=== PATIENT | male | born 1965 | race Caucasian/White ===

== ENCOUNTER 2017-02-28 09:40 | Outpatient (CLI) | payer BC, OTHER ==
[2017-02-28 12:45] LABS: BASOPHILS % (AUTO) 0.7 %; EOSINOPHILS # (AUTO) 0.2 10^3/uL (0.0-0.7); EOSINOPHILS % (AUTO) 3.2 %; HCT - HEMATOCRIT 44.1 % (42.0-52.0); HGB - HEMOGLOBIN 15.1 g/dL (14.0-18.0); MEAN CORPUSCULAR HEMOGLOBIN 30.4 pg (27.0-31.0); MEAN CORPUSCULAR HGB CONC 34.2 g/dL (32.0-36.0); MEAN CORPUSCULAR VOLUME 88.9 fL (80.0-94.0); MEAN PLATELET VOLUME 8.3 fL (7.4-11.4); MONOCYTES # (AUTO) 0.5 10^3/uL (0.0-1.0); MONOCYTES % (AUTO) 8.6 %; NEUTROPHILS # (AUTO) 3.4 10^3/uL (1.5-6.6); NEUTROPHILS % (AUTO) 54.5 %; NUCLEATED RED BLOOD CELLS AUTO 0.1 /100WBC; RED BLOOD COUNT 4.96 10^6/uL (4.70-6.10); RED CELL DISTRIBUTION WIDTH 13.5 % (12.0-15.0); UNCORRECTED WHITE BLOOD COUNT 6.2 x10^3/uL; WHITE BLOOD COUNT 6.2 x10^3/uL (4.8-10.8)
[2017-02-28 13:03] LABS: ALBUMIN/GLOBULIN RATIO 1.8 (1.0-2.2); BILIRUBIN,TOTAL 0.7 mg/dL (0.2-1.0); BUN - BLOOD UREA NITROGEN 14 mg/dL (6-20); CARBON DIOXIDE - CO2 28 mmol/L (21-32); CHLORIDE 101 mmol/L (101-111); CHOL/HDL RATIO 3.1 (<5.0); CHOLESTEROL 170 mg/dL; CREATININE 1.2 mg/dL (0.6-1.2); GFR - MDRD 64 (>89); GLUCOSE 98 mg/dL (70-100); HDL CHOLESTEROL 54 mg/dL; LDL/HDL RATIO 1.8 (<3.6); POTASSIUM 3.5 mmol/L (3.5-5.0); SODIUM 137 mmol/L (135-145); TRIGLYCERIDES 91 mg/dL; URIC ACID 8.1 mg/dL (2.6-7.2); VLDL CHOLESTEROL 18 mg/dL
== END 2017-02-28 09:41 | disposition home or self-care (01) ==
LOC: LAB.WCP 09:40
PROVIDERS: ATTEND Family Medicine
DX: Z00.00 Encounter for general adult medical examination without abnormal findings (principal); M10.00 Idiopathic gout, unspecified site
CPT/HCPCS: 36415; 80053; 80061; 84550; 85025

== ENCOUNTER 2018-03-07 07:30 | Day surgery (SDC) | payer BC, OTHER ==
[2018-03-07] MEDS ORDERED: LIDO GARGLE 30 ML BOTTLE ONE (08:04)
[2018-03-07] MEDS ORDERED: LACTATED RINGERS 1,000 ML IV ONE (08:14)
[2018-03-07] MEDS ORDERED: MIDAZOLAM 2 MG/2 ML VIAL IVP ONE (08:54)
[2018-03-07] MEDS ORDERED: fentaNYL 250 MCG/5 ML VIAL IVP ONE (08:54)
[2018-03-07 10:00] VITALS: BP 135/78
== END 2018-03-07 07:31 | disposition home or self-care (01) ==
LOC: SDS 07:30
PROVIDERS: ATTEND Internal Medicine Gastroenterology
PROC: 0DBC8ZZ Excision of Ileocecal Valve, Via Natural or Artificial Opening Endoscopic (ICD-10-PCS; principal; 2018-03-07 08:45)
DX: Z12.11 Encounter for screening for malignant neoplasm of colon (principal); D12.0 Benign neoplasm of cecum
CPT/HCPCS: 45380; A9270; J3010; J7120

== ENCOUNTER 2018-12-03 08:00 | Outpatient (CLI) | payer BC, OTHER ==
[2018-12-03 12:30] LABS: BASOPHILS # (AUTO) 0.1 10^3/uL (0.0-0.1); BASOPHILS % (AUTO) 0.9 %; EOSINOPHILS # (AUTO) 0.2 10^3/uL (0.0-0.7); EOSINOPHILS % (AUTO) 3.7 %; HGB - HEMOGLOBIN 15.7 g/dL (14.0-18.0); LYMPHOCYTES % (AUTO) 36.6 %; MEAN CORPUSCULAR HGB CONC 33.6 g/dL (32.0-36.0); MEAN CORPUSCULAR VOLUME 89.3 fL (80.0-94.0); MONOCYTES # (AUTO) 0.5 10^3/uL (0.0-1.0); MONOCYTES % (AUTO) 8.8 %; NEUTROPHILS # (AUTO) 2.7 10^3/uL (1.5-6.6); NEUTROPHILS % (AUTO) 49.8 %; PLT - PLATELET COUNT 212 10^3/uL (130-450); RED BLOOD COUNT 5.23 10^6/uL (4.70-6.10); RED CELL DISTRIBUTION WIDTH 13.1 % (12.0-15.0); WHITE BLOOD COUNT 5.5 x10^3/uL (4.8-10.8)
[2018-12-03 12:56] LABS: ALBUMIN 4.3 g/dL (3.2-5.5); ALBUMIN/GLOBULIN RATIO 1.5 (1.0-2.2); ALKALINE PHOSPHATASE 46 IU/L (42-121); ALT ALANINE AMINOTRANSFERASE 48 IU/L (10-60); AST ASPARTATE AMINOTRANSFERASE 33 IU/L (10-42); BILIRUBIN,TOTAL 0.9 mg/dL (0.2-1.0); BUN - BLOOD UREA NITROGEN 20 mg/dL (6-20); CALCIUM 9.2 mg/dL (8.5-10.3); CARBON DIOXIDE - CO2 23 mmol/L (21-32); CHLORIDE 104 mmol/L (101-111); CHOL/HDL RATIO 3.2 (<5.0); CHOLESTEROL 184 mg/dL; CREATININE 1.1 mg/dL (0.6-1.2); GFR - MDRD 71 (>89); GLUCOSE 112 mg/dL (70-100); HDL CHOLESTEROL 57 mg/dL; LDL CHOLESTEROL,CALCULATED 112 mg/dL; SODIUM 136 mmol/L (135-145); TOTAL PROTEIN 7.2 g/dL (6.7-8.2); URIC ACID 8.8 mg/dL (2.6-7.2); VLDL CHOLESTEROL 15 mg/dL
== END 2018-12-03 23:59 | disposition home or self-care (01) ==
LOC: LAB.WCP 08:00
PROVIDERS: ATTEND Family Medicine
DX: Z00.00 Encounter for general adult medical examination without abnormal findings (principal); M10.00 Idiopathic gout, unspecified site; Z12.5 Encounter for screening for malignant neoplasm of prostate
CPT/HCPCS: 36415; 80053; 80061; 83721; 84153; 84550; 85025

== ENCOUNTER 2020-02-17 12:52 | Outpatient (CLI) | payer BC, OTHER ==
--- NOTE | 2020-02-17 15:13 | SLEEP CARE CONSULTATION ---
Information from patient questionnaire entered by Katelin Kraft. I have reviewed and concur with the information entered by Katelin Kraft. This document represents the service I personally performed and the decisions made by me, Tisha Toure MD, [facility]. History of Present Illness Service Date and Time: 02/17/2020 1252 Reason for Visit: New patient Chief Complaint: reports: Other (was told by anesthesiologist) Usual bedtime: 1000 Time it takes to fall asleep: 16 minutes Observed to quit breathing while asleep: Yes Sleeps alone due to snoring: No Number of times waking at night: 1-2 Reasons for waking at night: reports: Bathroom Toss, Turn, or Twitch while sleeping: Yes Recalls having dreams: Yes Usually gets out of bed at: [id number] Feels refreshed in the morning: Yes Morning headache: No Sleepy or fatigued during the day: No Ever fallen asleep while driving: No Takes day naps: Yes Dreams during day naps: No Prior sleep studies: No Additional HPI information: I had the pleasure of seeing Mr. Burns today regarding the possibility of him having a sleep disorder. As you know, he is a 54 year old gentleman who reports being observed to stop breathing by hospital staff at the time of his leg surgery. At home, his says he snores loudly and quits breathing when he drinks alcohol. He does not wake up choking. He wakes up feeling refreshed in the morning. He normally works night but he can sleep at night on the weekends. Subjective Initial [place] Sleepiness Scale score: 12 Past Medical History Past Medical History: reports: Hypertension, Gout, Depression Social History The patient's occupation is an [employer]. Patient is and lives in [place]. Have you smoked in the past 12 months: No Years of smokin Quit date: 1992 Alcohol use: Yes Alcohol amount and frequency: 2-4 drinks, 2-3 Caffeine use: Yes Caffeine amount and frequency: 3-4 cups/day Family History Family history of sleep disordered breathing: Yes Family Hx Sleep Apnea: Father: Snoring, Sibling: Snoring Allergies and Home Medications Drug allergies reviewed: Yes (NKDA) Home medication list reviewed: Yes (none) Review of Systems Weight gain over past 5 years: 12 Weight loss over past 5 years: 12 Cardiovascular: reports: high blood pressure Respiratory: denies: shortness of breath, wheeze, sputum production, chronic cough, other Gastrointestinal: denies: heartburn, difficulty swallowing, nausea, vomitting, diarrhea, abdominal pain, other Urinary: denies: incontinence, frequency, urgency, impotence, other Neurological: denies: headaches, seizure, head trauma, disorientation, speech dysfunction, gait or balance problems, fainting or unconsciousness, other Psychiatric: reports: Attention Deficit Hyperactivity, anxiety, depression Ear/Nose/Throat: denies: nasal congestion, sinus problems, nose bleeds, dry mouth/throat, hoarseness, injury to nose, tonsillectomy, wisdom teeth removed, other Endocrine: denies: thyroid disease, history of goiter, sluggishness, too hot or cold, excessive thirst, increased appetite, increased urination, unexplained weakness, other Musculoskeletal: reports: joint pain, back pain, joint swelling, mobility problems Immunologic: reports: sneezing Physical Exam Vital signs obtained and entered by: Detailed physical exam was deferred to minimize COVID-19 exposure. Height: 5 ft 8 in Weight: 201 lb Body Mass Index: 30.5 BMI Classification: Obese Impression and Plan IMPRESSION: 1. Obstructive Sleep Apnea-Hypopnea Syndrome, as suggested by history of loud and irregular snoring and observed cessation of breath while asleep. Narrow oropharynx and obesity are common predisposing factors for obstructive sleep apnea-hypopnea syndrome. Untreated obstructive sleep apnea can also cause hypertension. Pathophysiology of sleep-disordered breathing was discussed. I recommend proceeding to polysomnography to confirm the diagnosis and to assess severity. If he has significant sleep disordered breathing, a manual CPAP titration study will also be performed to find the optimal treatment pressure. I informed the patient of what the sleep studies involve and after some discussion, he agreed to proceed. Plan: 1. Schedule polysomnography + manual CPAP titration study 2. Avoid long distance driving or when feeling sleepy. 3. Avoid alcohol, sedative and muscle relaxant around bedtime. 4. Attempt to lose weight. 5. Return in 1 to 2 weeks after the study to discuss results and initiate therap y. Visit Type: In Office Time Spent with Patient (minutes): 15 Provider Statement: I spent 100% of the Face to Face Visit with the patient with greater than 50% spent counseling the patient and coordination of care.
== END 2020-02-17 12:53 | disposition home or self-care (01) ==
LOC: SC 12:52
PROVIDERS: ATTEND Internal Medicine Pulmonary Disease
DX: R06.81 Apnea, not elsewhere classified (principal); R06.83 Snoring; G47.10 Hypersomnia, unspecified; E66.3 Overweight; I10 Essential (primary) hypertension
CPT/HCPCS: 99203; 99212

== ENCOUNTER 2020-03-10 19:30 | Outpatient (CLI) | payer BC, OTHER | END 2020-03-10 23:59 | disposition home or self-care (01) | LOC: SC 19:30 | PROVIDERS: ATTEND Internal Medicine Pulmonary Disease | DX: G47.33 Obstructive sleep apnea (adult) (pediatric) (principal); R09.02 Hypoxemia; E66.3 Overweight; Z68.30 Body mass index [BMI] 30.0-30.9, adult | CPT/HCPCS: 95806 ==

== ENCOUNTER 2020-03-24 16:22 | Outpatient (CLI) | payer BC, OTHER ==
--- NOTE | 2020-03-24 17:29 | SLEEP CARE CONSULTATION ---
Information from patient questionnaire entered by Tia Díaz. I have reviewed and concur with the information entered by Tia Díaz. This document represents the service I personally performed and the decisions made by me, Rosette Mckay ARNP. History of Present Illness Service Date and Time: 03/24/2020 162 Initial [place] Sleepiness Scale score: 12 (in 2020) Current [place] Sleepiness Scale score: 5 Additional HPI information: ZAIRA COKER returns for follow up and results of the recently performed home sleep study. I explained the pathophysiology behind obstructive sleep apnea. We then spent quite a bit of time discussing different treatment options. For mild obstructive sleep apnea, surgery and oral appliance are alternatives to nasal CPAP therapy but in moderate or severe cases, nasal CPAP is the most effective and reliable treatment. After some discussion, the patient opted to go with the nasal CPAP therapy. Nasal autoCPAP set at 4-15 cmH20 will be ordered with rationale explained. A manual titration study will be ordered if unable to find optimal pressure with office adjustments. I explained how CPAP machine works with sample devices [employer]pir[employer]. Silica Dreamstation and eSilicon [id number] and what to expect when using the machine. Using CPAP every night in order to get used to it was emphasized. Patient advised to put CPAP mask on before getting into bed so as not to fall asleep without CPAP. To assist acclimation to CPAP use, it could also be used for a short time during day while reading or watching TV. The patient was instructed to call the CPAP supplier to discuss any mechanical problem that may occur. If the mask given is uncomfortable or is difficult to keep on through the night even with adjustment, contact the CPAP supplier as many will replace with another mask style if notified before 30 days. If snoring or perceives is not getting enough air or too much air from the machine, notify this office. Patient counseled not drink alcohol less than 4 hours before bedtime as it can increase snoring and apnea. Patient was cautioned about risks of drowsy driving until sleepiness symptoms resolve. Sleep Study - Results Type of Sleep Study: Home sleep study Prior sleep studies: No Polysomnography/Home Sleep Study results: Physician Impression: The quality of the study is fair due to partial loss of pulse oximetry signal. The length of the study is adequate (> 240 minutes). Please also see the tabulated and graphic data. 1. Obstructive Sleep Apnea-Hypopnea (ICD-10 G47.33), mild, with an AHI of 14.1 /hr and serena SaO2 of 75%. During the study, the patient had 52 apneas (52 obstructive, 0 central, 0 mixed) and 34 hypopneas. The longest episode lasted 46.5 seconds. The patient slept almost exclusively in supine position (supine AHI was 15.1 and non-supine, 0.00). 2. Hypoxemia (ICD-10 R09.02), moderate, with the lowest oxygen saturation of 75 % and 24.0 minutes with SaO2 under 90%. Baseline oxygen saturation was normal (Average oxygen saturation was 93%). Allergies and Home Medications Drug allergies reviewed: Yes (promethazine) Home medication list reviewed: Yes (no changes) Review of Systems Review of systems same as previous: Yes ( no changes) Physical Exam Heart Rate: 59 O2 Saturation: 96 Height: 5 ft 8 in Weight: 202 lb Body Mass Index: 30.7 BMI Classification: Obese Impression and Plan 1. Obstructive Sleep Apnea-Hypopnea Syndrome, mild, with lowest oxygen saturation of 75%. Obviously this is the cause of the patients symptoms of unrefreshed sleep, and excessive daytime sleepiness. Positive pressure therapy could benefit his hypertension and depression. As mentioned above, the patient will be started on nasal autoCPAP therapy with pressure set at 4-15 cmH2O. A manual titration study will be completed if unable to find optimal treatment pressure with office adjustments. Compliance guidelines also reviewed. A copy of compliance guidelines will be given for reference at check out. Because the ap ignacio is more severe supine, I instructed to avoid sleeping supine using pillow positioning until able to start CPAP use. * Nasal auto CPAP therapy, pressure at 4-15 cm H2O. * Attempt to lose weight. * Avoid alcohol consumption near bedtime. * Avoid supine sleep until using CPAP. * The patient is again cautioned about driving until sleepiness completely resolves. * Return one month after CPAP obtained. I will assess response to therapy and compliance at that time. Counseling Topics: Weight loss health impact Visit Type: In Office Time Spent with Patient (minutes): 20 Provider Statement: I spent 100% of the Face to Face Visit with the patient with greater than 50% spent counseling the patient and coordination of care.
== END 2020-03-24 16:23 | disposition home or self-care (01) ==
LOC: SC 16:22
PROVIDERS: ATTEND Nurse Practitioner Family
DX: G47.33 Obstructive sleep apnea (adult) (pediatric) (principal); E66.9 Obesity, unspecified; Z68.30 Body mass index [BMI] 30.0-30.9, adult
CPT/HCPCS: 99212; 99213

== ENCOUNTER 2020-05-25 16:27 | Outpatient (CLI) | payer BC, OTHER ==
--- NOTE | 2020-05-25 17:10 | SLEEP CARE CONSULTATION ---
Information from patient questionnaire entered by Tia Díaz. I have reviewed and concur with the information entered by Tia Díaz. This document represents the service I personally performed and the decisions made by , Rosette Mckay ARNP. History of Present Illness Service Date and Time: 05/25/2020 1627 Previous diagnosis: Mild, Obstructive Sleep Apnea-Hypopnea Syndrome AHI: 14.1 Reason for follow up: first compliance Equipment type: CPAP Equipment obtained from: [facility] (got initial shipment but needs to clarify first supplies order) Mask style: Nasal (DreamWisp) Backup mask available: No (keep old mask when replaced) Last cushion change: 2 months Prior sleep studies: No Type of Sleep Study: Home sleep study HPI additional information: ZAIRA COKER was diagnosed to have mild, AHI 14.1, obstructive sleep apnea- hypopnea syndrome and returned today for CPAP therapy first compliance follow- up. Sleep Study - Results Type of Sleep Study: Home sleep study Prior sleep studies: No CPAP Compliance Data - Data Reviewed with Patient Average duration of nightly device use: 4 h 55 min Compliance rate %: 66.7 Current pressure setting (cmH2O): 4-15 Humidity settin Heated hose settin Average residual AHI: 3.6 Average large leak: 1 min 25 sec Subjective Patient concerns: denies: aerophagia, mask discomfort, air blowing in eyes, mask leak noise, condensation in mask/hose, nasal congestion, dry mouth, nose, throat, epistaxis, other Observed to snore while using device: No Current pressure setting perceived as: comfortable On therapy, patient: reports: sleeping better, awakening more refreshed, being more awake and alert during the day, more rested overall. denies: drowsiness while driving Initial [place] Sleepiness Scale score: 12 (in 2019) Current [place] Sleepiness Scale score: 8 Allergies and Home Medications Drug allergies reviewed: Yes (promethazine) Home medication list reviewed: Yes (no changes) Review of Systems Review of systems same as previous: Yes (no changes) Physical Exam Heart Rate: 56 O2 Saturation: 98 Height: 5 ft 8 in Weight: 203 lb Body Mass Index: 30.9 BMI Classification: Obese Impression and Plan 1. Obstructive Sleep Apnea-Hypopnea Syndrome, mild, with fair treatment compli ance and good apnea control. On CPAP therapy, the patient has better sleep quality and is more rested overall. He has been trying to use the CPAP machine but states he has only been using it when sleeping his usual nightly rest which is not always 4 hours or more. He does normally get a "power nap" daily but has not been using the CPAP at that time. I encouraged him to use his CPAP machine with naps to increase his compliance and to get increased benefit of treatment. He voiced understanding and agreement. Patient's apnea severity and rationale for treatment to reduce apnea, improve sleep quality and reduce cardiovascular and cerebrovascular events was reviewed. I also reviewed the benefit of consistent device use of CPAP for hypertension and depression. * Changeauto CPAP pressure to 5-8 cmH2O * Notify me if snoring with mask or feeling that the pressure is too much or too little * Attempt to lose weight * Call this office if any problems using CPAP * Return for follow up in 1-2 months, or sooner if concerns arise Counseling Topics: Spare mask, Weight loss health impact Visit Type: In Office Time Spent with Patient (minutes): 19 Provider Statement: I spent 100% of the Face to Face Visit with the patient with greater than 50% spent counseling the patient and coordination of care.
== END 2020-05-25 16:28 | disposition home or self-care (01) ==
LOC: SC 16:27
PROVIDERS: ATTEND Nurse Practitioner Family
DX: G47.33 Obstructive sleep apnea (adult) (pediatric) (principal); E66.9 Obesity, unspecified; Z68.30 Body mass index [BMI] 30.0-30.9, adult
CPT/HCPCS: 99212; 99213

== ENCOUNTER 2020-07-08 08:24 | Outpatient (CLI) | payer BC, OTHER ==
--- NOTE | 2020-07-08 08:59 | SLEEP CARE CONSULTATION ---
Information from patient questionnaire entered by Kirsten Quinteros. I have reviewed and concur with the information entered by Kirsten Quinteros. This document represents the service I personally performed and the decisions made by , Rosette Mckay ARNP. History of Present Illness Service Date and Time: 07/08/2020 0824 Previous diagnosis: Mild, Obstructive Sleep Apnea-Hypopnea Syndrome AHI: 14.1 (in 2019) Reason for follow up: other (6 week with pressure change) Equipment type: CPAP Equipment obtained from: [facility] (getting supplies as needed) Mask style: Nasal Mask brand: Respironics (Dream Wisp) Backup mask available: Yes (other mask) Last cushion change: 2-3 weeks ago Prior sleep studies: Yes Year and Where: [address] - [facility] Type of Sleep Study: Home sleep study HPI additional information: ZAIRA COKER was diagnosed to have mild, AHI 14.1, obstructive sleep apnea- hypopnea syndrome and returned today for CPAP therapy 6 week pressure change follow-up. CPAP Compliance Data - Data Reviewed with Patient Average duration of nightly device use: 6 hr 30 min Compliance rate %: 80 Current pressure setting (cmH2O): 5-8 Humidity settin Heated hose settin Average residual AHI: 2.9 Central apnea: 0.5 Obstructive apnea: 0.5 Hypopnea: 1.9 Average large leak: 2 min 19 sec Subjective Patient concerns: reports: nasal congestion (just a little mucus drainage first thing in morning, no real issues). denies: aerophagia, mask discomfort, air blowing in eyes, mask leak noise, condensation in mask/hose, dry mouth, nose, throat, epistaxis, other Observed to snore while using device: No Current pressure setting perceived as: comfortable On therapy, patient: reports: sleeping better, awakening more refreshed, being more awake and alert during the day, more rested overall. denies: drowsiness while driving Initial [place] Sleepiness Scale score: 12 (in 2019) Current [place] Sleepiness Scale score: 10 Allergies and Home Medications Drug allergies reviewed: Yes (promethazine) Home medication list reviewed: Yes (no changes) Review of Systems Review of systems same as previous: Yes (no changes) Physical Exam Heart Rate: 77 O2 Saturation: 98 Height: 5 ft 8 in Weight: 204 lb Body Mass Index: 31.0 BMI Classification: Obese Impression and Plan 1. Obstructive Sleep Apnea-Hypopnea Syndrome, mild, with good treatment compliance and good apnea control. On CPAP therapy, the patient has better sleep quality and is more rested overall. He is very comfortable with use. He has no complaints of dry mouth, aerophagia, mask discomfort or condensation in mask/hose. He has some nasal drainage/mucus in the mornings but no nasal congestion that is limiting his CPAP use. He thinks it might just be due to weather or allergies. I think he is doing well enough that we can stretch out to a 6 month follow up and patient agrees to plan. Patient's apnea severity and rationale for treatment to reduce apnea, improve sleep quality and reduce cardiovascular and cerebrovascular events was reviewed. I also reviewed the benefit of consistent device use of CPAP for hypertension and depression. * Continue auto CPAP pressure at 5-8 cmH2O * Notify me if snoring with mask or feeling that the pressure is too much or too little * Attempt to lose weight * Call this office if any problems using CPAP * Return for follow up in 6 months, or sooner if concerns arise Counseling Topics: Spare mask, Weight loss health impact Visit Type: In Office Time Spent with Patient (minutes): 20 Provider Statement: I spent 100% of the Face to Face Visit with the patient with greater than 50% spent counseling the patient and coordination of care.
== END 2020-07-08 08:25 | disposition home or self-care (01) ==
LOC: SC 08:24
PROVIDERS: ATTEND Nurse Practitioner Family
DX: G47.33 Obstructive sleep apnea (adult) (pediatric) (principal); E66.9 Obesity, unspecified; Z68.31 Body mass index [BMI] 31.0-31.9, adult
CPT/HCPCS: 99212; 99213

== ENCOUNTER 2020-12-24 12:33 | Outpatient (CLI) | payer BC, OTHER ==
--- NOTE | 2020-12-24 13:31 | SLEEP CARE CONSULTATION ---
Information from patient questionnaire entered by Kirsten Quinteros. I have reviewed and concur with the information entered by Kirsten Quinteros. This document represents the service I personally performed and the decisions made by , Rosette Mckay ARNP. History of Present Illness Service Date and Time: 12/24/2020 1233 Previous diagnosis: Mild, Obstructive Sleep Apnea-Hypopnea Syndrome AHI: 14.1 (in 2019) Reason for follow up: six month Equipment type: CPAP Equipment obtained from: [facility] (getting supplies as needed) Mask style: Nasal Backup mask available: No (will keep old mask when replaced) Last cushion change: 1.5 weeks ago Prior sleep studies: Yes Year and Where: 2019 - [facility] Type of Sleep Study: Home sleep study HPI additional information: ZAIRA COKER was diagnosed to have mild, AHI 14.1, obstructive sleep apnea- hypopnea syndrome and returned today for CPAP therapy six month follow-up. CPAP Compliance Data - Data Reviewed with Patient Average duration of nightly device use: 6 hr 8 min Compliance rate %: 72.2 (180 days) Current pressure setting (cmH2O): 5-8 Humidity settin Heated hose settin Average residual AHI: 2.7 Average large leak: 2 min 56 sec Subjective Patient concerns: reports: mask leak noise (occasional, just needs adjustment). denies: aerophagia, mask discomfort, air blowing in eyes, condensation in mask/hose, nasal congestion, dry mouth, nose, throat, epistaxis, other Observed to snore while using device: No Current pressure setting perceived as: comfortable On therapy, patient: reports: sleeping better, awakening more refreshed, being more awake and alert during the day, more rested overall, other (dreams are more vivid). denies: drowsiness while driving Initial [place] Sleepiness Scale score: 12 (in 2020) Current [place] Sleepiness Scale score: 5 Allergies and Home Medications Home medication list reviewed: Yes (no changes) Review of Systems Review of systems same as previous: Yes (no changes) Physical Exam Heart Rate: 55 O2 Saturation: 97 Height: 5 ft 8 in Weight: 202 lb Weight change since last visit: 2 lb loss Body Mass Index: 30.7 BMI Classification: Obese Impression and Plan 1. Obstructive Sleep Apnea-Hypopnea Syndrome, mild, with good treatment compliance and good apnea control. On CPAP therapy, the patient has better sleep quality and is more rested overall. Patient asking about alternative non-Pap treatments such as the oral appliance that he has been told about by his children. He would like to see if this would work for him rather than continuing with his CPAP. He has no issues with the CPAP but feels he would become more dependent on it if he uses it long-term. I informed him that it may not be covered by insurance but we do have a list of dentists in the area he would like to check into it. I then reviewed with him that his Dreamstation may be on a recall announced by [employer]. I advised him to register his device on their website to be able to get more information about the recall. Patient states his device does not have any black particles in the hoses or water chamber. He was advised that he could stop using the machine until the are able to replace or repair his machine. He decides to still use it since he is getting good benefit and there is no indication that it is defective at this po int. I informed him he may use an inline filter that can reduce chance of him inhaling particles and he voiced understanding. He also decided to go forward with looking into the oral appliance but will continue his using his CPAP until he has the oral appliance to use. I will follow up with him 1 month after he obtains the device for evaluation. Patient's apnea severity and rationale for treatment to reduce apnea, improve sleep quality and reduce cardiovascular and cerebrovascular events was reviewed. I also reviewed the benefit of consistent device use of CPAP for hypertension and depression. * Continue autoCPAP pressure at 5-8 cmH2O * Oral appliance * Notify me if snoring with mask or feeling that the pressure is too much or too little * Attempt to lose weight * Call this office if any problems using CPAP * Return for follow up one month after getting oral device or 1 year for PAP follow up, or sooner if concerns arise Counseling Topics: Spare mask, Weight loss health impact Visit Type: In Office Time Spent with Patient (minutes): 20 Provider Statement: I spent 100% of the Face to Face Visit with the patient with greater than 50% spent counseling the patient and coordination of care.
== END 2020-12-24 12:34 | disposition home or self-care (01) ==
LOC: SC 12:33
PROVIDERS: ATTEND Nurse Practitioner Family
DX: G47.33 Obstructive sleep apnea (adult) (pediatric) (principal); E66.9 Obesity, unspecified; Z68.30 Body mass index [BMI] 30.0-30.9, adult
CPT/HCPCS: 99212; 99213

== ENCOUNTER 2021-03-14 09:32 | Outpatient (CLI) | payer BC, OTHER ==
--- NOTE | 2021-03-14 11:53 | XRAY Report ---
PROCEDURE: Elbow 3 View RT INDICATIONS: BURSITIS OF R OLECRANON BURSA TECHNIQUE: 3 views of the elbow were acquired. COMPARISON: None FINDINGS: Bones: No fractures or dislocations. No suspicious bony lesions. Soft tissues: Soft tissue edema is noted overlying the elbow. No suspicious soft tissue calcification s. IMPRESSION: No visualized acute fracture or dislocation. However, occult injury cannot be excluded. Recommend moody rt interval imaging follow-up in 7-10 days as clinically indicated for additional evaluation. Soft tissue edema is noted overlying the elbow. Reviewed by: Justina Stephens MD on 03/14/2021 11:51 AM PDT Approved by: Justina Stephens MD on 03/14/2021 11:51 AM PDT Station ID: [id number]
== END 2021-03-14 23:59 | disposition home or self-care (01) ==
LOC: DI.N 09:32
PROVIDERS: ATTEND Physician Assistant Medical
DX: M70.21 Olecranon bursitis, right elbow (principal); R93.6 Abnormal findings on diagnostic imaging of limbs; R93.89 Abnormal findings on diagnostic imaging of other specified body structures

== ENCOUNTER 2021-03-24 11:25 | Outpatient (CLI) | payer BC, OTHER ==
--- NOTE | 2021-03-24 11:23 | XRAY Report ---
PROCEDURE: Elbow 3 View RT INDICATIONS: OLECRANON BURSITIS TECHNIQUE: 3 views of the elbow were acquired. COMPARISON: March 14, 2021 FINDINGS: BONES/JOINTS: No acute, displaced fracture or dislocation. No appreciable joint effusion. SOFT TISSUES: Diffuse soft tissue edema. IMPRESSION: 1.No acute osseous abnormality of the elbow. 2.Diffuse soft tissue edema. If there is clinical concern for olecranon bursitis, consider sonographi c imaging. Reviewed by: Alton Nicholas MD on 03/24/2021 11:21 AM PDT Approved by: Alton Nicholas MD on 03/24/2021 11:21 AM PDT Station ID: [id number]
== END 2021-03-24 11:26 | disposition home or self-care (01) ==
LOC: DI.N 11:25
PROVIDERS: ATTEND Physician Assistant
DX: M70.21 Olecranon bursitis, right elbow (principal); R93.6 Abnormal findings on diagnostic imaging of limbs; R93.89 Abnormal findings on diagnostic imaging of other specified body structures

== ENCOUNTER 2021-04-13 08:09 | Outpatient (CLI) | payer BC, OTHER ==
--- NOTE | 2021-04-13 08:48 | SLEEP CARE CONSULTATION ---
Information from patient questionnaire entered by Katelin Kraft. I have reviewed and concur with the information entered by Katelin Kraft. This document represents the service I personally performed and the decisions made by me, Rosette Mckay ARNP. History of Present Illness Service Date and Time: 04/13/2021 0809 Previous diagnosis: Mild, Obstructive Sleep Apnea-Hypopnea Syndrome AHI: 14.1 (in 2019) Reason for follow up: three month (with oral device) Equipment type: CPAP Equipment obtained from: Other ([facility]) Mask style: Nasal pillows Prior sleep studies: Yes Year and Where: 2019 - [facility] Type of Sleep Study: Home sleep study HPI additional information: ZAIRA COKER was diagnosed to have mild, AHI 14.1, obstructive sleep apnea- hypopnea syndrome and returned today for oral appliance therapy three month follow-up. Sleep Study - Results Type of Sleep Study: Home sleep study Prior sleep studies: Yes Year and Where: 2019 - [facility] CPAP Compliance Data Compliance data discussion: He has been using it every night. He gets a little bit of a sore jaw with its use and has talked to his dentist about this issues. The oral appliance is comfortable otherwise. Subjective Missed days of use due to: reports: family emergency ( had heart attack) On therapy, patient: reports: sleeping better, awakening more refreshed, being more awake and alert during the day, more rested overall. denies: drowsiness while driving Initial [place] Sleepiness Scale score: 12 (in 2019) Current [place] Sleepiness Scale score: 6 Allergies and Home Medications Home medication list reviewed: Yes (Meloxicam, prn elbow pain, short-term) Review of Systems Review of systems same as previous: Yes (no changes) Physical Exam Heart Rate: 68 O2 Saturation: 96 Height: 5 ft 8 in Weight: 212 lb Body Mass Index: 32.2 BMI Classification: Obese Impression and Plan 1. Obstructive Sleep Apnea-Hypopnea Syndrome, mild. Using oral appliance therapy, the patient has better sleep quality and is more rested overall. He states he is sleeping solidly and well. He wakes up feeling rested with energy during the day. He did have some vivid dreams at first but this has reduced to normal again. He has a little bit of soreness in his jaw. He followed up with his dentist who told him this was normal and to just give it time. Patient is being compliant with oral appliance and noting good sleep. I will have him complete a home study to check effectiveness of the oral appliance therapy. Patient was encouraged to lose weight for their overall health and to reduce apneas. Patient's apnea severity and rationale for treatment to reduce apnea, improve sleep quality and reduce cardiovascular and cerebrovascular events was reviewed. Continue oral appliance therapy Repeat Polysomnography/HST to check effectiveness of oral therapy Attempt to lose weight Call this office if any problems Return for follow up after polysomnography completed, or sooner if concerns arise Counseling Topics: Weight loss health impact Visit Type: In Office Time Spent with Patient (minutes): 16 Provider Statement: I spent 100% of the Face to Face Visit with the patient with greater than 50% spent counseling the patient and coordination of care.
== END 2021-04-13 08:10 | disposition home or self-care (01) ==
LOC: SC 08:09
PROVIDERS: ATTEND Nurse Practitioner Family
DX: G47.33 Obstructive sleep apnea (adult) (pediatric) (principal); E66.9 Obesity, unspecified; Z68.32 Body mass index [BMI] 32.0-32.9, adult
CPT/HCPCS: 99212

== ENCOUNTER 2021-06-23 08:54 | Outpatient (CLI) | payer BC, OTHER | END 2021-06-23 08:55 | disposition home or self-care (01) | LOC: SC 08:54 | PROVIDERS: ATTEND Nurse Practitioner Family | DX: G47.33 Obstructive sleep apnea (adult) (pediatric) (principal); R09.02 Hypoxemia | CPT/HCPCS: 95806 ==

== ENCOUNTER 2021-07-06 16:12 | Outpatient (CLI) | payer BC, OTHER ==
[2021-07-06 15:55] VITALS: BP 137/77
--- NOTE | 2021-07-06 15:55 | SLEEP CARE CONSULTATION ---
Information from patient questionnaire entered by Brittney Cramer MA. I have reviewed and concur with the information entered by Brittney Cramer MA. This document represents the service I personally performed and the decisions made by , Rosette Mckay ARNP. History of Present Illness Service Date and Time: 07/06/2021 1540 Initial [place] Sleepiness Scale score: 12 (in 2019) Current [place] Sleepiness Scale score: 5 (2021) Additional HPI information: ZAIRA COKER returns for follow up and results of the recently performed home sleep study with oral appliance in place. The patient was informed of the following findings: No significant sleep disordered breathing with an average AHI of 2.9 and serena oxygen saturation of 87%. I explained the pathophysiology behind obstructive sleep apnea. Patient does not have sleep apnea and was advised how weight gain could increase the risk of developing sleep apnea in the future. I strongly encouraged the patient to lose weight. Patient was cautioned about risks of drowsy driving until sleepiness symptoms resolve. Sleep Study - Results Type of Sleep Study: Home sleep study Prior sleep studies: Yes Year and Where: 2019 - [facility] Polysomnography/Home Sleep Study results: Physician Impression: The quality of the study is fair due to partial loss of pulse oximetry signal. The length of the study is adequate (> 240 minutes). Please also see the tabulated and graphic data. 1. No significant sleep disordered breathing, with an AHI of 2.9/hr and serena SaO2 of 87%. During the study, the patient had 7 apneas (7 obstructive, 0 central, 0 mixed) and 10 hypopneas. The longest episode lasted 76.0 seconds. The few respiratory events occurred independently of sleep stage and body position (supine AHI was 2.7 and non-supine, 3.07). 2. Hypoxemia (ICD-10 R09.02), mild, with the lowest oxygen saturation of 87 % and 4.9 minutes with SaO2 under 90%. Baseline oxygen saturation was normal (Average oxygen saturation was 93%). Allergies and Home Medications Known drug allergies: Yes (PROMETHAZINE) Drug allergies reviewed: Yes Home medication list reviewed: Yes (no changes) Review of Systems Review of systems same as previous: Yes (no changes) Physical Exam Vital signs obtained and entered by: Natalia CRAMER CMA, AAMA Blood Pressure: 137/77 (RIGHT, PULSE 65) Cuff size: wrist Heart Rate: 67 O2 Saturation: 97 (WITH PAPER MASK) Height: 5 ft 8 in Weight: 198 lb (W/O CLOTHES) Body Mass Index: 30.1 BMI Classification: Obese Impression and Plan 1. Obstructive Sleep Apnea-Hypopnea Syndrome, mild, using oral mandibular appliance to control his DA. On oral appliance therapy, the patient has better sleep quality and is more rested overall. He comes in today to follow up after an HST with the oral appliance in place and his average AHI was 2.9 with serena oxygen saturation of 87%. His oral appliance appears to be controlling his apneas well. Patient states his jaw is no longer sore. He has got into a good nightly routine of brushing his teeth and putting in his oral appliance before laying down. He is satisfied with oral appliance therapy. He does not need to continue with CPAP therapy. Patient's apnea severity and rationale for treatment to reduce apnea, improve sleep quality and reduce cardiovascular and cerebrovascular events was reviewed. Patient was encouraged to lose weight for their overall health and to reduce apneas. * Continue oral mandibular device * Notify me if snoring with mask or feeling that the pressure is too much or too little * Attempt to lose weight * Call this office if any problems using CPAP * Return for follow up in 6 months, or sooner if concerns arise Counseling Topics: Weight loss health impact Visit Type: In Office Time Spent with Patient (minutes): 12 Provider Statement: I spent 100% of the Face to Face Visit with the patient with greater than 50% spent counseling the patient and coordination of care.
== END 2021-07-06 16:13 | disposition home or self-care (01) ==
LOC: SC 16:12
PROVIDERS: ATTEND Nurse Practitioner Family
DX: G47.33 Obstructive sleep apnea (adult) (pediatric) (principal); E66.9 Obesity, unspecified; Z68.30 Body mass index [BMI] 30.0-30.9, adult
CPT/HCPCS: 99212

== ENCOUNTER 2021-09-08 14:07 | Outpatient (CLI) | payer BC, OTHER ==
--- NOTE | 2021-09-08 15:47 | XRAY Report ---
PROCEDURE: Shoulder 3 View RT INDICATIONS: PAIN IN RIGHT SHOULDER TECHNIQUE: 3 views of the shoulder were acquired. COMPARISON: None. FINDINGS: Bones: No fractures or dislocations. No suspicious bony lesions. Mild acromioclavicular joint dege neration. Visualized ribs appear intact. Soft tissues: A calcific density over the humeral head, suspicious for rotator cuff calcific tendinit is. IMPRESSION: 1. Mild osteoarthritis. 2. Suspect rotator cuff calcific tendinitis. If clinically indicated, MRI may be helpful. Reviewed by: Oneil Contreras MD on 09/08/2021 3:45 PM PDT Approved by: Oneil Contreras MD on 09/08/2021 3:45 PM PDT Station ID: [id number]
== END 2021-09-08 14:08 | disposition home or self-care (01) ==
LOC: DI.N 14:07
PROVIDERS: ATTEND Physician Assistant
DX: M19.011 Primary osteoarthritis, right shoulder (principal)

== ENCOUNTER 2022-01-11 08:09 | Outpatient (CLI) | payer BC, OTHER ==
[2022-01-11 08:55] VITALS: BP 115/27
--- NOTE | 2022-01-11 08:56 | SLEEP CARE CONSULTATION ---
Information from patient questionnaire entered by Brittney Cramer MA. I have reviewed and concur with the information entered by Brittney Cramer MA. This document represents the service I personally performed and the decisions made by , Rosette Mckay ARNP. History of Present Illness Service Date and Time: 01/11/2022 0809 Previous diagnosis: Mild, Obstructive Sleep Apnea-Hypopnea Syndrome AHI: 14.1 (in 2019) Reason for follow up: six month (ORAL F/U, ) Equipment type: Dental Appliance Prior sleep studies: Yes Year and Where: 2019 - [facility] Type of Sleep Study: Home sleep study HPI additional information: ZAIRA COKER was diagnosed to have mild, AHI 14.1, obstructive sleep apnea- hypopnea syndrome and returned today for Oral appliance therapy six month follow-up. Sleep Study - Results Type of Sleep Study: Home sleep study Prior sleep studies: Yes Year and Where: 2019 - [facility] CPAP Compliance Data Compliance data discussion: Patient is using his oral appliance every night. They have established a routine to put the oral appliance in their mouth nightly. Subjective Missed days of use due to: reports: family emergency Observed to snore while using device: No On therapy, patient: reports: sleeping better, awakening more refreshed, being more awake and alert during the day, more rested overall. denies: drowsiness while driving Initial [place] Sleepiness Scale score: 12 (in 2019) Current [place] Sleepiness Scale score: 8 (01/11/22) Allergies and Home Medications Home medication list reviewed: Yes (no changes) Allergy and home medication list: Allergies promethazine Allergy (Verified 11/17/15 08:10) Anaphylaxis Review of Systems Review of systems same as previous: Yes (no changes) Physical Exam Vital signs obtained and entered by: Natalia CRAMER CMA AABREONNA Blood Pressure: 115/27 (RESP 20, PULSE 53, RIGHT) Cuff size: wrist Heart Rate: 53 O2 Saturation: 97 (PAPER MASK) Height: 5 ft 8 in Weight: 205 lb 8 oz (CLOTHES) Weight change since last visit: GYM TO LOSE WEIGHT, gained 7 pounds Body Mass Index: 31.2 BMI Classification: Obese Impression and Plan 1. Obstructive Sleep Apnea-Hypopnea Syndrome, mild. Using oral appliance therapy, the patient has better sleep quality and is more rested overall. Patient is very happy with oral appliance and has significant improvement of his sleep apnea. He did have to have it replaced because his dog got a hold of his first appliance and chewed on it. He states this happened about 2 months ago. There was a period of time where his mouth had to readjust to the new oral appliance but it is working well. Patient's apnea severity and rationale for treatment to reduce apnea, improve sleep quality and reduce cardiovascular and cerebrovascular events was reviewed. 2. Obesity, unspecified. Patient has gained weight. He did the [employer] race recently and was very sore but is recovering well. Currently patients BMI is 31.2. Obesity increases the risk of apnea and overall health risks especially c ardiovascular and diabetes. Thus patient is advised to continue to try to lose weight. Weight loss can be done with reducing portion size, reducing refined foods and balancing content with vegetables, fruit and whole grain foods. In addition, patient encouraged to get regular exercise. -Continue oral appliance therapy for DA -Continue to try to lose weight -Call this office if any problems -Return for follow up in 1 year, or sooner if concerns arise Counseling Topics: Weight loss health impact Visit Type: In Office Time Spent with Patient (minutes): 12 Provider Statement: I spent 100% of the Face to Face Visit with the patient with greater than 50% spent counseling the patient and coordination of care.
== END 2022-01-11 08:10 | disposition home or self-care (01) ==
LOC: SC 08:09
PROVIDERS: ATTEND Nurse Practitioner Family
DX: G47.33 Obstructive sleep apnea (adult) (pediatric) (principal); E66.9 Obesity, unspecified; Z68.31 Body mass index [BMI] 31.0-31.9, adult
CPT/HCPCS: 99212

== ENCOUNTER 2022-04-22 09:22 | Emergency (ER) | payer BC, OTHER ==
--- NOTE | 2022-04-22 09:43 | ED Physician Documentation ---
PD HPI LOWER EXT INJURY - Stated complaint Stated Complaint: LT KNEE/ANKLE INJ - Chief complaint Chief Complaint: Trauma Ext - History obtained from History obtained from: Patient - Additional information Additional information: He was walking his dog last night and his right leg went out from under him and then his left leg got hyperflexed beneath him. He has moderate pain of the left knee with motion but very mild at rest. He has mild left ankle pain. He is able to walk. No other injuries. Of note he has a history of an ORIF of the left ankle. Review of Systems Constitutional: reports: Reviewed and negative Nose: reports: Reviewed and negative Cardiac: reports: Reviewed and negative Respiratory: reports: Reviewed and negative PD PAST MEDICAL HISTORY - Past Medical History Cardiovascular: Hypertension Respiratory: None Endocrine/Autoimmune: None GI: None : None Psych: None Musculoskeletal: Gout Derm: None - Past Surgical History Past Surgical History: Yes - Present Medications Home Medications: Ambulatory Orders Medication Instructions Recorded Confirmed Ibuprofen [Motrin] 800 mg PO Q8H PRN #30 tablet 04/22/22 - Allergies Allergies/Adverse Reactions: Allergies Allergy/AdvReac Type Severity Reaction Status Date / Time promethazine Allergy Anaphylaxis Verified 04/22/22 09:30 - Social History Does the pt smoke?: No Smoking Status: Never smoker Does the pt drink ETOH?: No Does the pt have substance abuse?: No - Immunizations Immunizations are current?: Yes PD ED PE NORMAL - Vitals Vital signs reviewed: Yes - General General: Alert and oriented X 3, No acute distress - Back Back: No CVA TTP, No spinal TTP - Derm Derm: Normal color, Warm and dry - Extremities Extremities: Other (Left ankle is nontender, well-healed lateral incision from ORIF. Left knee mild tenderness over the lateral joint line and pain with LCL testing but no laxity. ACL, PCL, MCL testing all painless and intact. No effus ion.) Results - Vitals Vitals: Vital Signs - 24 hr 04/22/22 04/22/22 09:26 10:55 Temperature 36.6 C 37.1 C Heart Rate 71 62 Respiratory 14 18 Rate Blood Pressure 176/108 H 163/100 H O2 Saturation 97 98 Oxygen O2 Source Room air - Rads (name of study) L knee XR Radiology: EMP read contemporaneously (OA, small effusion, no frx) PD MEDICAL DECISION MAKING - ED course Complexity details: reviewed results, d/w patient Departure - Departure Disposition: 01 Home, Self Care Clinical Impression: Left knee sprain Condition: Good Record reviewed to determine appropriate education?: Yes Instructions: ED Sprain Knee Prescriptions: Ibuprofen [Motrin] 800 mg PO Q8H PRN #30 tablet PRN Reason: PAIN &/OR FEVER Comments: Return for new or worsening symptoms, if not better in the next week or so follow-up with your doctor for reevaluation, potential repeat imaging or MRI. Forms: Activity restrictions Discharge Date/Time: 04/22/22 10:56
[2022-04-22 10:56] VITALS: BP 163/100
--- NOTE | 2022-04-22 11:00 | XRAY Report ---
PROCEDURE: Knee 4 View LT INDICATIONS: knee inj TECHNIQUE: 4 views of the left knee(s) were acquired. COMPARISON: None. FINDINGS: Bones: No fractures or dislocations. Moderate tricompartmental osteoarthritis in left knee is seen most notably in medial femoral tibial compartment. No suspicious bony lesions. Likely a chondroma is seen in distal femoral shaft. Soft tissues: Small to moderate suprapatellar joint effusion. No suspicious soft tissue calcificatio ns. IMPRESSION: No acute left knee fracture or dislocation. Moderate tricompartmental osteoarthritis and small joint effusion. Reviewed by: Logan Temple MD on 04/22/2022 10:59 AM PDT Approved by: Logan Temple MD on 04/22/2022 10:59 AM PDT Station ID: [id number]
== END 2022-04-22 10:56 | disposition home or self-care (01) ==
LOC: ED 09:22
DX: S83.92XA Sprain of unspecified site of left knee, initial encounter (principal); W18.30XA Fall on same level, unspecified, initial encounter; Y93.K1 Activity, walking an animal; I10 Essential (primary) hypertension
CPT/HCPCS: 99282; 99283

== ENCOUNTER 2022-04-24 14:38 | Outpatient (CLI) | payer BC, OTHER ==
[2022-04-24 18:22] LABS: BASOPHILS # (AUTO) 0.1 10^3/uL (0.0-0.1); BASOPHILS % (AUTO) 0.8 %; EOSINOPHILS # (AUTO) 0.2 10^3/uL (0.0-0.7); EOSINOPHILS % (AUTO) 2.5 %; HCT - HEMATOCRIT 48.1 % (42.0-52.0); HGB - HEMOGLOBIN 16.6 g/dL (14.0-18.0); LYMPHOCYTES % (AUTO) 27.3 %; MEAN CORPUSCULAR HEMOGLOBIN 30.3 pg (27.0-31.0); MEAN CORPUSCULAR HGB CONC 34.5 g/dL (32.0-36.0); MEAN CORPUSCULAR VOLUME 87.8 fL (80.0-94.0); MONOCYTES # (AUTO) 0.7 10^3/uL (0.0-1.0); MONOCYTES % (AUTO) 9.1 %; NEUTROPHILS # (AUTO) 4.4 10^3/uL (1.5-6.6); NEUTROPHILS % (AUTO) 60.2 %; PLT - PLATELET COUNT 210 10^3/uL (130-450); RED BLOOD COUNT 5.48 10^6/uL (4.70-6.10); RED CELL DISTRIBUTION WIDTH 12.5 % (12.0-15.0); WHITE BLOOD COUNT 7.3 x10^3/uL (4.8-10.8)
[2022-04-24 18:39] LABS: ALBUMIN 4.4 g/dL (3.2-5.5); ALBUMIN/GLOBULIN RATIO 1.5 (1.0-2.2); BILIRUBIN,TOTAL 1.1 mg/dL (0.2-1.0); CALCIUM 9.2 mg/dL (8.5-10.3); CREATININE 1.1 mg/dL (0.6-1.2); TOTAL PROTEIN 7.3 g/dL (6.7-8.2)
[2022-04-24 18:46] LABS: THYROID STIMULATING HORMONE 4.99 uIU/mL (0.34-5.60)
[2022-04-24 20:34] LABS: ESTIMATED AVERAGE GLUCOSE 126 mg/dL (70-100)
== END 2022-04-24 14:39 | disposition home or self-care (01) ==
LOC: LAB.N 14:38
PROVIDERS: ATTEND Physician Assistant
DX: I10 Essential (primary) hypertension (principal); R68.82 Decreased libido; R73.01 Impaired fasting glucose; Z13.29 Encounter for screening for other suspected endocrine disorder
CPT/HCPCS: 36415; 80053; 83036; 84403; 84443; 85025

== ENCOUNTER 2022-08-23 18:11 | Outpatient (CLI) | payer BC, OTHER ==
[2022-08-23 19:07] LABS: INFLUENZA A- RESP PCR PANEL NOT DETECTED; INFLUENZA B - RESP PCR PANEL NOT DETECTED; RSV- RESP PCR PANEL DETECTED; SARS-CoV-2 -RESP PCR PANEL NOT DETECTED
== END 2022-08-23 23:59 | disposition home or self-care (01) ==
LOC: LAB.WCP 18:11
PROVIDERS: ATTEND Physician Assistant
DX: R05.1 Acute cough (principal); Z20.822 Contact with and (suspected) exposure to COVID-19
CPT/HCPCS: 87637

== ENCOUNTER 2023-09-10 18:48 | Outpatient (CLI) | payer BC, OTHER ==
--- NOTE | 2023-09-11 12:17 | Ultrasound Report ---
PROCEDURE: Testicular ultrasound INDICATIONS: Testicular mass, left? Patient states multiple cysts removed from the left epididymis. 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 Patient is unsure if left epididymis was surgically removed. TECHNIQUE: Real-time scanning was performed of the scrotum and testicles, with image documentation. Color and p ulse Doppler interrogation was performed of both testicles. COMPARISON: None. FINDINGS: Right: Testicle is normal in size at 4.4 x 2.5 x 3.4 cm, and homogenous in echotexture. . Small 3 m m epididymal cyst is seen otherwise the epididymis is normal in overall size and morphology. Small h ydrocele. No varicoceles. Overlying scrotal skin is normal in thickness. Left: Testicle is normal in size at 4.7 x 2.2 x 3.0 cm, and moderately heterogeneous in echotexture. Note is made of a cyst inferiorly in the area of concern measuring 1.0 x 0.5 x 0.9 cm in size. Epidi dymis is poorly visualized. Questionable trace of tissue noted by application helper. No varicocele seen. Doppler: Color and pulse Doppler demonstrate expected arterial and venous flow in both testicles. IMPRESSION: 1. No evidence of testicular torsion 2. In the area of concern of the left scrotum, a 1 cm cyst is identified. 3. The left epididymis is not visualized; in its place a questionable trace soft tissue noted by sono grapher. Reviewed by: Tony Oneill MD on 09/11/2023 12:15 PM PDT Approved by: Tony Oneill MD on 09/11/2023 12:15 PM PDT Station ID: [id number]
== END 2023-09-10 18:49 | disposition home or self-care (01) ==
LOC: DI 18:48
PROVIDERS: ATTEND Physician Assistant
DX: N44.2 Benign cyst of testis (principal)

== ENCOUNTER 2024-01-03 15:45 | Outpatient (CLI) | payer BC, OTHER ==
--- NOTE | 2024-01-03 16:16 | Sleep Patient Instructions ---
Sleep Center Visit Summary - Patient Visit Information Reason for Visit: Annual followup - Patient Instructions Additional Instructions: You will continue with oral appliance therapy. Check in with dentist for evaluation of fit of oral appliance. We encourage you to continue to try to lose weight. Please follow up with the sleep care office in 1 year. - Clinic Information Contact: [facility] [address] [place] [address] [email or web address] T: [phone]
[2024-01-03 16:22] VITALS: BP 149/92; O2SAT 96
--- NOTE | 2024-01-03 16:22 | SLEEP CARE CONSULTATION ---
Information from patient questionnaire entered by Nina Mckeon. I have reviewed and concur with the information entered by Nina Mckeon. This document represents the service I personally performed and the decisions made by me, Rosette Mckay ARNP. History of Present Illness Service Date and Time: 01/03/2024 1545 Previous diagnosis: Mild, Obstructive Sleep Apnea-Hypopnea Syndrome AHI: 14.1 (in 2019) Reason for follow up: annual (LAST SEEN 12/2022) Equipment type: Dental Appliance Prior sleep studies: Yes Year and Where: 2019 - [facility] Type of Sleep Study: Home sleep study HPI additional information: ZAIRA COKER was diagnosed to have mild, AHI 14.1, obstructive sleep apnea- hypopnea syndrome and returned today for oral appliance therapy annual follow- up. Sleep Study - Results Type of Sleep Study: Home sleep study Prior sleep studies: Yes Year and Where: 2019 - [facility] CPAP Compliance Data Compliance data discussion: He uses his oral appliance every night. He says it is comfortable and he has no issues with wearing it. Subjective On therapy, patient: reports: sleeping better, awakening more refreshed, being more awake and alert during the day, more rested overall. denies: drowsiness while driving Initial [place] Sleepiness Scale score: 12 (in 2019) Current [place] Sleepiness Scale score: 4 (01/03/24) Allergies and Home Medications Known drug allergies: Yes (as listed) Drug allergies reviewed: Yes Home medication list reviewed: Yes (no changes) Allergy and home medication list: Allergies promethazine Allergy (Verified 01/01/24 12:13) Anaphylaxis Review of Systems Review of systems same as previous: Yes (NO CHANGE) Physical Exam Vital signs obtained and entered by: NINA Merino MA Blood Pressure: 149/92 (LEFT ARM) Cuff size: regular Heart Rate: 51 O2 Saturation: 96 Height: 5 ft 8 in Weight: 210 lb 12.8 oz Weight change since last visit: 5 lb loss Body Mass Index: 32.0 BMI Classification: Obese Impression and Plan 1. Obstructive Sleep Apnea-Hypopnea Syndrome, mild. Patient states when using oral appliance he has better sleep quality and is more rested overall. He says his first oral appliance was chewed on by a new puppy and he had to pay for a replacement. He says the fit is just off with the second one but he uses it every night without pain or discomfort. I advised him to make an appointment to see the dentist who made it to have it checked for fit and wear. He got the original oral device by 03/2021. He voiced understanding. Patient's apnea severity and rationale for treatment to reduce apnea, improve sleep quality and reduce cardiovascular and cerebrovascular events was reviewed. 2. Obesity, unspecified. Currently patients BMI is 32. He has lost weight. Obesity increases the risk of apnea, CPAP pressure requirements and overall health risks especially cardiovascular and diabetes. Thus patient is advised to continue to try to lose weight. * Continue oral appliance therapy * Notify me if snoring with mask or feeling that the pressure is too much or too little * Attempt to lose weight * Call this office if any problems using CPAP * Return for follow up in 12 months, or sooner if concerns arise Counseling Topics: Weight loss health impact Follow up with Sleep Care in: 1 year Visit Type: In Office Time Spent with Patient (minutes): 20 Provider Statement: I spent 100% of the Face to Face Visit with the patient with greater than 50% spent counseling the patient and coordination of care.
== END 2024-01-03 15:46 | disposition home or self-care (01) ==
LOC: SC 15:45
PROVIDERS: ATTEND Nurse Practitioner Family
DX: G47.33 Obstructive sleep apnea (adult) (pediatric) (principal); E66.9 Obesity, unspecified; Z68.32 Body mass index [BMI] 32.0-32.9, adult
CPT/HCPCS: 99212; 99213